=== PATIENT | female | born 1975 | race Asian ===

== ENCOUNTER 2016-08-25 20:07 | Emergency (ER) | payer OTHER ==
[~2016-08-25] VITALS: Ht 165.1 cm; Wt 127.0 kg
[~2016-08-25 20:07] MED LIST: CELEBREX200 MG PO; CLONIDINE0.1 MG PO; COZAAR100 MG PO; CYCL10TA35 PO; DOXYCYCL HYC100 M4 PO; FAMO20TA4 OR; FLUTMIS6 INH; FURO20TA67 PO; HYDR-2748 PO; HYDR25TA60 PO; LEVO0.0218 PO; MEDROL DOSEPAK4 MG PO; NEXIUM40 M1 PO; PRED20TA27 PO; SUCR1TAB35 PO; Z-PAK PO
[2016-08-25 21:40] LABS: POTASSIUM 4.5 mmol/L (3.6-5.2)
[2016-08-25 22:01] LABS: PLATELET COUNT 216 K/uL (152-353)
[2016-08-26 01:15] VITALS: BP 160/107; TEMP 98.2
== END 2016-08-26 01:17 | disposition home or self-care (01) ==
LOC: ED 20:07
DX: K80.20 Calculus of gallbladder without cholecystitis without obstruction (principal); K76.89 Other specified diseases of liver; R11.2 Nausea with vomiting, unspecified
CPT/HCPCS: 80053; 81000; 82150; 83690; 85027; 86318; 96361; 96374; 96375; 99284; J2175; J2550; Q9963

== ENCOUNTER 2016-09-23 15:39 | Outpatient (CLI) | payer OTHER ==
[2016-09-23 16:57] LABS: PLATELET COUNT 185 K/uL (152-353)
[2016-09-23 17:09] LABS: POTASSIUM 4.4 mmol/L (3.6-5.2); SODIUM 136 mmol/L (136-145)
== END 2016-09-23 19:21 | disposition home or self-care (01) ==
LOC: LABW 15:39
PROVIDERS: Internal Medicine Cardiovascular Disease
DX: I10 Essential (primary) hypertension (principal); E78.4 Other hyperlipidemia; R06.02 Shortness of breath; Z79.899 Other long term (current) drug therapy; Z51.81 Encounter for therapeutic drug level monitoring
CPT/HCPCS: 36415; 80048; 80061; 80076; 83880; 85027

== ENCOUNTER 2016-10-23 08:29 | Emergency (ER) | payer OTHER ==
[~2016-10-23] VITALS: Ht 165.1 cm; Wt 122.5 kg
[2016-10-23 09:07] LABS: PLATELET COUNT 232 K/uL (152-353)
[2016-10-23 09:15] LABS: POTASSIUM 3.3 mmol/L (3.6-5.2)
[2016-10-23 10:50] VITALS: BP 96/52; TEMP 98.1
== END 2016-10-23 10:50 | disposition home or self-care (01) ==
LOC: ED 08:29
DX: N39.0 Urinary tract infection, site not specified (principal); R42 Dizziness and giddiness; Z79.899 Other long term (current) drug therapy; Z86.711 Personal history of pulmonary embolism; D86.89 Sarcoidosis of other sites
CPT/HCPCS: 36415; 80053; 81000; 85027; 85610; 85730; 87086; 87088; 93005; 96360; 96361; 99284

== ENCOUNTER 2017-01-14 10:34 | Outpatient (CLI) | payer OTHER | END 2017-01-14 19:16 | disposition home or self-care (01) | LOC: RESP 10:34 | DX: I27.2 Other secondary pulmonary hypertension (principal) ==

== ENCOUNTER 2017-01-30 20:52 | Emergency (ER) | payer OTHER ==
[~2017-01-30] VITALS: Ht 165.1 cm; Wt 127.0 kg
[2017-01-30 21:55] LABS: PLATELET COUNT 270 K/uL (152-353)
[2017-01-31 00:46] VITALS: BP 118/64; TEMP 98.4
[2017-02-02] MEDS ORDERED: ELIQUIS5 MG OR (06:58)
[2017-02-02] MEDS ORDERED: DULO30CA OR (07:03)
[2017-02-02] MEDS ORDERED: FURO40TA93 PO (07:03)
[2017-02-02] MEDS ORDERED: POT CHLORIDE20 ME2 OR (07:04)
[2017-02-02] MEDS ORDERED: HYDR25TA60 PO (07:08)
[2017-02-02] MEDS ORDERED: PROTONIX20 MG PO (07:09)
[2017-02-02] MEDS ORDERED: BYSTOLIC10 MG PO (07:10)
[2017-02-02] MEDS ORDERED: ADEMPAS2 MG PO (07:10)
[2017-02-02] MEDS ORDERED: CYCL10TA35 PO (07:11)
[2017-02-02] MEDS ORDERED: ACET-689 PO (07:12)
== END 2017-01-31 00:30 | disposition home or self-care (01) ==
LOC: ED 20:52
DX: K52.89 Other specified noninfective gastroenteritis and colitis (principal); R10.84 Generalized abdominal pain
CPT/HCPCS: 80053; 85027; 96374; 99284; J1885

== ENCOUNTER 2017-02-10 18:48 | Outpatient (CLI) | payer OTHER ==
[~2017-02-10 18:48] MED LIST changes: +ACET-689 PO; +ADEMPAS2 MG PO; +BYSTOLIC10 MG PO; +DULO30CA OR; +ELIQUIS5 MG OR; +FURO40TA93 PO; +POT CHLORIDE20 ME2 OR; +PROTONIX20 MG PO; +SYMBICORT1 AE1 IN
[2017-02-10 20:23] LABS: POTASSIUM 4.2 mmol/L (3.6-5.2)
[2017-02-10 20:26] LABS: PLATELET COUNT 281 K/uL (152-353)
== END 2017-02-10 19:59 | disposition home or self-care (01) ==
LOC: LAB 18:48
PROVIDERS: Family Medicine
DX: R74.8 Abnormal levels of other serum enzymes (principal); D64.89 Other specified anemias; R10.84 Generalized abdominal pain
CPT/HCPCS: 80053; 81000; 85027

== ENCOUNTER 2018-01-05 12:32 | Outpatient (CLI) | payer OTHER | END 2018-01-05 23:30 | disposition home or self-care (01) | LOC: RESP 12:32 | DX: I27.24 Chronic thromboembolic pulmonary hypertension (principal) ==

== ENCOUNTER → 2018-03-10 12:21 | Outpatient (CLI) | payer OTHER | END | disposition short-term general hospital (02) | LOC: AMB 12:21 | DX: J44.1 Chronic obstructive pulmonary disease with (acute) exacerbation (principal) | CPT/HCPCS: A0425; A0427 ==

== ENCOUNTER 2018-03-10 12:23 | Emergency (ER) | payer OTHER ==
[~2018-03-10] VITALS: Ht 165.1 cm; Wt 129.3 kg
[2018-03-10 13:44] LABS: PARTIAL THROMBOPLASTIN TIME 27.2 SECONDS (24.5-33.6)
[2018-03-10 14:16] LABS: POTASSIUM 3.5 mmol/L (3.6-5.2); SODIUM 136 mmol/L (136-145)
[2018-03-10 14:34] LABS: PLATELET COUNT 266 K/uL (152-353)
[2018-03-10 16:30] VITALS: BP 92/63
== END 2018-03-10 16:30 | disposition home or self-care (01) ==
LOC: ED 12:23
DX: R53.1 Weakness (principal); G47.39 Other sleep apnea; I27.20 Pulmonary hypertension, unspecified
CPT/HCPCS: 80053; 81000; 82550; 82553; 83880; 84484; 85027; 85610; 85730; 93005; 99283

== ENCOUNTER 2018-11-30 07:42 | Outpatient (CLI) | payer OTHER ==
[2018-11-30 08:05] LABS: PLATELET COUNT 216 K/uL (152-353)
[2018-11-30 08:46] LABS: POTASSIUM 4.5 mmol/L (3.6-5.2)
== END 2018-11-30 23:26 | disposition home or self-care (01) ==
LOC: LABW 07:42
PROVIDERS: Family Medicine
DX: I10 Essential (primary) hypertension (principal); K21.9 Gastro-esophageal reflux disease without esophagitis; F41.8 Other specified anxiety disorders; E55.9 Vitamin D deficiency, unspecified; J44.9 Chronic obstructive pulmonary disease, unspecified
CPT/HCPCS: 36415; 80053; 80061; 81000; 82306; 83735; 84439; 84443; 85027

== ENCOUNTER 2018-12-20 15:29 | Outpatient (CLI) | payer OTHER | END 2018-12-20 19:49 | disposition home or self-care (01) | LOC: RAD 15:29 | DX: D86.0 Sarcoidosis of lung (principal) ==

== ENCOUNTER 2019-02-13 14:33 | Inpatient (IN) | payer OTHER ==
[2019-02-13] VITALS (9 sets, daily range): BP systolic 116–154; BP diastolic 68–97; TEMP 98.2–98.6; Ht 165.1 cm; Wt 132.5 kg
[~2019-02-13] VITALS: Ht 165.1 cm; Wt 132.5 kg
[2019-02-13 15:41] LABS: PLATELET COUNT 217 K/uL (152-353)
[2019-02-13 15:49] LABS: POTASSIUM 4.7 mmol/L (3.6-5.2); SODIUM 138 mmol/L (136-145)
[2019-02-13 16:00] LABS: PARTIAL THROMBOPLASTIN TIME 25.7 SECONDS (24.5-33.6)
[2019-02-14 04:00] VITALS: BP 138/92; TEMP 98.8
[2019-02-14 08:00] VITALS: BP 134/87; TEMP 98.1
[2019-02-14 10:49] LABS: PLATELET COUNT 216 K/uL (152-353)
[2019-02-14 11:05] LABS: POTASSIUM 4.9 mmol/L (3.6-5.2); SODIUM 137 mmol/L (136-145)
[2019-02-14 11:50] VITALS: BP 115/81; TEMP 98
[2019-02-14 12:00] VITALS: BP 127/91; TEMP 98
[2019-02-14 12:33] LABS: PARTIAL THROMBOPLASTIN TIME 25.4 SECONDS (24.5-33.6)
[2019-02-14 14:00] VITALS: BP 118/77
[2019-02-14 15:00] VITALS: BP 123/80
== END 2019-02-14 16:45 | disposition short-term general hospital (02) | DRG 204 ==
LOC: ED 14:33 → MED/SURG 16:53 → ICU 02-14 12:26
PROVIDERS: Family Medicine; ADMIT Student in an Organized Health Care Education/Training Program
DX: R06.03 Acute respiratory distress (principal); R09.02 Hypoxemia; G47.33 Obstructive sleep apnea (adult) (pediatric); D86.89 Sarcoidosis of other sites; I27.20 Pulmonary hypertension, unspecified; E66.8 Other obesity; Z91.19 Patient's noncompliance with other medical treatment and regimen
CPT/HCPCS: 36415; 36600; 80048; 80053; 82550; 82805; 83735; 83880; 84100; 84484; 85027; 85379; 85610; 85730; 93005; 94660; 96374; 99284; J1644; J2930; Q9963

== ENCOUNTER 2019-02-14 16:55 | Outpatient (CLI) | payer OTHER | END 2019-02-14 18:09 | disposition short-term general hospital (02) | LOC: AMB 16:55 | DX: R06.03 Acute respiratory distress (principal); Z99.89 Dependence on other enabling machines and devices | CPT/HCPCS: A0425; A0427 ==

== ENCOUNTER 2019-04-14 15:25 | Inpatient (IN) | payer OTHER ==
[~2019-04-14] VITALS: Ht 162.6 cm; Wt 123.4 kg
[2019-04-14] VITALS (12 sets, daily range): BP systolic 129–183; BP diastolic 88–110; TEMP 97.9; Ht 162.6 cm; Wt 123.4 kg
[2019-04-14 16:35] LABS: PLATELET COUNT 193 K/uL (152-353)
[2019-04-14 16:36] LABS: POTASSIUM 5.1 mmol/L (3.6-5.2); SODIUM 141 mmol/L (136-145)
[2019-04-15] VITALS (25 sets, daily range): BP systolic 93–1231; BP diastolic 46–98; TEMP 97.9–99.4
[2019-04-15 01:18] LABS: PLATELET COUNT 193 K/uL (152-353)
[2019-04-15 01:23] LABS: POTASSIUM 4.6 mmol/L (3.6-5.2)
[2019-04-15] MEDS ORDERED: ADEMPAS2.5 MG PO (10:37)
[2019-04-15] MEDS ORDERED: FURO40TA93 PO (11:45)
[2019-04-15] MEDS ORDERED: D31000 UNIT PO (11:49)
[2019-04-15] MEDS ORDERED: TURMERIC CURCUM1 CAP PO (11:51)
[2019-04-16] VITALS (13 sets, daily range): BP systolic 90–122; BP diastolic 50–77; TEMP 97.9–99.3
[2019-04-16 06:08] LABS: PLATELET COUNT 185 K/uL (152-353); POTASSIUM 4.4 mmol/L (3.6-5.2)
[2019-04-17] VITALS (10 sets, daily range): BP systolic 93–115; BP diastolic 45–74; TEMP 98.2–99.1
[2019-04-17 05:38] LABS: POTASSIUM 4.3 mmol/L (3.6-5.2)
[2019-04-17] MEDS ORDERED: ALBU0.0813 INH (14:21)
[2019-04-17] MEDS ORDERED: GUAI600T70 PO (14:22)
[2019-04-17] MEDS ORDERED: LEVAQUIN 500MG TAB PO (14:23)
[2019-04-17] MEDS ORDERED: IPRASOL5 INH (14:23)
[2019-04-17] MEDS ORDERED: PRED10TA27 PO (14:24)
== END 2019-04-17 16:50 | disposition home or self-care (01) | DRG 189 ==
LOC: ED 15:25 → ICU 18:00
PROVIDERS: Family Medicine; ADMIT Internal Medicine
DX: J96.02 Acute respiratory failure with hypercapnia (principal); J18.8 Other pneumonia, unspecified organism; E87.2 Acidosis; D86.9 Sarcoidosis, unspecified; I27.20 Pulmonary hypertension, unspecified; K21.9 Gastro-esophageal reflux disease without esophagitis; Z86.711 Personal history of pulmonary embolism
CPT/HCPCS: 36415; 36600; 80048; 80053; 82805; 84443; 84484; 85027; 85379; 87502; 87651; 93005; 94640; 94660; 94664; 94668; 94760; 96374; 96375; 99285; J0132; J0360; J1885; J1940; J1956; J2270; J2543; J2930

== ENCOUNTER 2019-05-10 20:00 | Emergency (ER) | payer OTHER ==
[~2019-05-10] VITALS: Ht 162.6 cm; Wt 123.4 kg
[~2019-05-10 20:00] MED LIST changes: +ADEMPAS2.5 MG PO; +ALBU0.0813 INH; +D31000 UNIT PO; +GUAI600T70 PO; +IPRASOL5 INH; +LEVAQUIN 500MG TAB PO; +PRED10TA27 PO; +TURMERIC CURCUM1 CAP PO
[2019-05-10 21:21] LABS: PLATELET COUNT 236 K/uL (152-353)
[2019-05-10 21:33] LABS: POTASSIUM 5.1 mmol/L (3.6-5.2)
[2019-05-10 22:37] LABS: PARTIAL THROMBOPLASTIN TIME 30.5 SECONDS (24.5-33.6)
[2019-05-11 01:09] VITALS: BP 151/98; TEMP 98.1
== END 2019-05-11 01:10 | disposition short-term general hospital (02) ==
LOC: ED 20:00
PROVIDERS: Emergency Medicine
DX: R06.03 Acute respiratory distress (principal)
CPT/HCPCS: 36415; 36600; 80053; 82550; 82553; 82805; 83605; 83735; 83880; 84484; 85027; 85379; 85610; 85730; 93005; 94664; 99285

== ENCOUNTER 2019-05-11 01:13 | Outpatient (CLI) | payer OTHER | END 2019-05-11 02:34 | disposition short-term general hospital (02) | LOC: AMB 01:13 | DX: R06.02 Shortness of breath (principal); R06.03 Acute respiratory distress | CPT/HCPCS: A0425; A0427 ==

== ENCOUNTER 2020-06-10 09:21 | Outpatient (CLI) | payer OTHER ==
[2020-06-10 10:17] LABS: POTASSIUM 4.9 mmol/L (3.6-5.2)
== END 2020-06-10 21:25 | disposition home or self-care (01) ==
LOC: RESP 09:21
PROVIDERS: ATTEND Internal Medicine Sleep Medicine
DX: I27.24 Chronic thromboembolic pulmonary hypertension (principal)
CPT/HCPCS: 36415; 80048; 83880

== ENCOUNTER 2020-10-02 11:12 | Outpatient (CLI) | payer OTHER | END 2020-10-02 20:13 | disposition home or self-care (01) | LOC: INF 11:12 | PROVIDERS: ATTEND Internal Medicine | DX: Z23 Encounter for immunization (principal) | CPT/HCPCS: 96372 ==

== ENCOUNTER 2020-10-24 10:45 | Outpatient (CLI) | payer OTHER | END 2020-10-24 19:26 | disposition home or self-care (01) | LOC: INF 10:45 | PROVIDERS: ATTEND Internal Medicine | DX: Z23 Encounter for immunization (principal) | CPT/HCPCS: 96372 ==

== ENCOUNTER 2021-01-10 11:55 | Emergency (ER) | payer OTHER ==
[~2021-01-10] VITALS: Ht 162.6 cm; Wt 147.0 kg
[2021-01-10 12:00] VITALS: TEMP 98.1
[2021-01-10 13:07] LABS: POTASSIUM 4.1 mmol/L (3.6-5.2); SODIUM 143 mmol/L (136-145)
[2021-01-10 13:10] LABS: PLATELET COUNT 214 K/uL (152-353)
[2021-01-10 17:01] VITALS: BP 152/76
== END 2021-01-10 17:01 | disposition home or self-care (01) ==
LOC: ED 11:55
PROVIDERS: Family Medicine
DX: R06.89 Other abnormalities of breathing (principal); D86.89 Sarcoidosis of other sites; Z20.822 Contact with and (suspected) exposure to COVID-19
CPT/HCPCS: 36600; 80053; 81000; 82805; 84484; 85027; 85379; 87635; 93005; 99283; U0003

== ENCOUNTER 2021-01-16 13:36 | Emergency (ER) | payer OTHER ==
[~2021-01-16] VITALS: Ht 165.1 cm; Wt 147.0 kg
[2021-01-16] MEDS ORDERED: METHYLCOBALAMIN XX (13:57)
[2021-01-16 14:09] LABS: PLATELET COUNT 220 K/uL (152-353)
[2021-01-16 14:14] LABS: POTASSIUM 4.2 mmol/L (3.6-5.2); SODIUM 140 mmol/L (136-145)
[2021-01-16 14:19] LABS: PARTIAL THROMBOPLASTIN TIME 28.7 SECONDS (24.5-33.6)
[2021-01-17 06:57] VITALS: TEMP 98.9
[2021-01-17 14:02] VITALS: BP 138/80
== END 2021-01-17 14:21 | disposition short-term general hospital (02) ==
LOC: ED 13:36
PROVIDERS: Hospitalist
DX: I27.20 Pulmonary hypertension, unspecified (principal); J44.9 Chronic obstructive pulmonary disease, unspecified; I50.9 Heart failure, unspecified; R41.82 Altered mental status, unspecified; D86.89 Sarcoidosis of other sites; Z11.52 Encounter for screening for COVID-19
CPT/HCPCS: 36415; 80053; 82550; 82947; 83880; 84484; 85027; 85379; 85610; 85730; 87635; 93005; 96374; 96375; 99284; J1940; J2270; J2405; Q9963; U0003

== ENCOUNTER 2021-02-03 09:14 | Emergency (ER) | payer OTHER ==
[~2021-02-03] VITALS: Ht 165.1 cm; Wt 147.0 kg
[~2021-02-03 09:14] MED LIST changes: +METHYLCOBALAMIN XX
[2021-02-03 09:55] LABS: PLATELET COUNT 315 K/uL (152-353)
[2021-02-03 09:57] LABS: POTASSIUM 4.4 mmol/L (3.6-5.2); SODIUM 143 mmol/L (136-145)
[2021-02-03 10:14] LABS: PARTIAL THROMBOPLASTIN TIME 21.7 SECONDS (24.5-33.6)
[2021-02-03 11:20] VITALS: BP 144/70; TEMP 98.7
== END 2021-02-03 11:40 | disposition home or self-care (01) ==
LOC: ED 09:14
PROVIDERS: Emergency Medicine
DX: R41.0 Disorientation, unspecified (principal); G47.33 Obstructive sleep apnea (adult) (pediatric); D86.9 Sarcoidosis, unspecified; Z99.81 Dependence on supplemental oxygen; R06.02 Shortness of breath
CPT/HCPCS: 80053; 82805; 83880; 84484; 85027; 85379; 85610; 85730; 93005; 99283

== ENCOUNTER 2021-10-14 10:08 | Outpatient (CLI) | payer OTHER ==
[2021-10-14 11:17] LABS: POTASSIUM 4.9 mmol/L (3.6-5.2)
[2021-10-14 13:07] LABS: PLATELET COUNT 169 K/uL (152-353)
== END 2021-10-14 18:53 | disposition home or self-care (01) ==
LOC: LABW 10:08
PROVIDERS: ATTEND Internal Medicine
DX: D86.89 Sarcoidosis of other sites (principal); E03.8 Other specified hypothyroidism; K29.70 Gastritis, unspecified, without bleeding; Z86.711 Personal history of pulmonary embolism; Z09 Encounter for follow-up examination after completed treatment for conditions other than malignant neoplasm
CPT/HCPCS: 36415; 80053; 80061; 81000; 82164; 83540; 83880; 84439; 84443; 85027; 85379

== ENCOUNTER 2022-03-08 20:34 | Emergency (ER) | payer OTHER ==
[~2022-03-08] VITALS: Ht 165.1 cm; Wt 147.0 kg
[2022-03-08 22:37] LABS: POTASSIUM 4.8 mmol/L (3.6-5.2)
[2022-03-08 22:52] LABS: PLATELET COUNT 165 K/uL (152-353)
[2022-03-08 23:55] VITALS: BP 104/646; TEMP 98.4
== END 2022-03-08 23:55 | disposition short-term general hospital (02) ==
LOC: ED 20:34
PROVIDERS: Family Medicine
DX: J96.90 Respiratory failure, unspecified, unspecified whether with hypoxia or hypercapnia (principal); J18.9 Pneumonia, unspecified organism; D86.89 Sarcoidosis of other sites; Z11.52 Encounter for screening for COVID-19
CPT/HCPCS: 36600; 80053; 82150; 82805; 83880; 85027; 86140; 87040; 87077; 87185; 87205; 87635; 94660; 94664; 96365; 96366; 96375; 99284; J0456; J0696; J2930; U0003

== ENCOUNTER 2022-05-30 02:15 | Emergency (ER) | payer OTHER ==
[~2022-05-30] VITALS: Ht 165.1 cm; Wt 147.0 kg
[2022-05-30 03:26] LABS: POTASSIUM 4.5 mmol/L (3.6-5.2)
[2022-05-30 03:28] LABS: PLATELET COUNT 148 K/uL (152-353)
[2022-05-30 03:42] LABS: PARTIAL THROMBOPLASTIN TIME 29.2 SECONDS (24.5-33.6)
[2022-05-30 06:00] VITALS: BP 131/76
== END 2022-05-30 06:00 | disposition short-term general hospital (02) ==
LOC: ED 02:15
PROVIDERS: Family Medicine
DX: J96.91 Respiratory failure, unspecified with hypoxia (principal); J44.1 Chronic obstructive pulmonary disease with (acute) exacerbation
CPT/HCPCS: 36415; 36600; 80053; 82550; 82805; 83880; 84484; 85027; 85610; 85730; 87040; 87205; 93005; 94664; 96365; 96366; 96375; 99285; J0456; J0696; J2930

== ENCOUNTER 2022-08-01 10:57 | Emergency (ER) | payer OTHER ==
[~2022-08-01] VITALS: Ht 165.1 cm; Wt 147.0 kg
[2022-08-01 10:57] VITALS: TEMP 97.3
[2022-08-01 11:32] LABS: PLATELET COUNT 184 K/uL (152-353)
[2022-08-01 12:41] LABS: PARTIAL THROMBOPLASTIN TIME 24.5 SECONDS (24.5-33.6)
[2022-08-01 12:47] LABS: POTASSIUM 4.4 mmol/L (3.6-5.2)
[2022-08-01 15:32] VITALS: BP 103/71
== END 2022-08-01 15:38 | disposition short-term general hospital (02) ==
LOC: ED 10:57
PROVIDERS: Family Medicine
DX: R06.89 Other abnormalities of breathing (principal); J44.1 Chronic obstructive pulmonary disease with (acute) exacerbation; D64.89 Other specified anemias; Z11.52 Encounter for screening for COVID-19
CPT/HCPCS: 36600; 80053; 81002; 82550; 82805; 83880; 84484; 85027; 85610; 85730; 87635; 93005; 94660; 94664; 96365; 96375; 99285; J0696; J1940; J2930; U0003

== ENCOUNTER 2022-08-27 12:22 | Outpatient (CLI) | payer OTHER ==
[2022-08-27 12:43] LABS: PLATELET COUNT 201 K/uL (152-353)
== END 2022-08-27 19:20 | disposition home or self-care (01) ==
LOC: LAB 12:22
PROVIDERS: ATTEND Internal Medicine
DX: J96.11 Chronic respiratory failure with hypoxia (principal); D86.0 Sarcoidosis of lung; I10 Essential (primary) hypertension
CPT/HCPCS: 80053; 80061; 84439; 84443; 85027

== ENCOUNTER 2022-11-05 09:27 | Outpatient (CLI) | payer OTHER ==
[2022-11-05 09:54] LABS: PLATELET COUNT 144 K/uL (152-353)
[2022-11-05 09:57] LABS: POTASSIUM 4.6 mmol/L (3.6-5.2)
== END 2022-11-05 17:00 | disposition home or self-care (01) ==
LOC: LABW 09:27
PROVIDERS: ATTEND Internal Medicine
DX: J96.11 Chronic respiratory failure with hypoxia (principal); R79.89 Other specified abnormal findings of blood chemistry; Z79.899 Other long term (current) drug therapy
CPT/HCPCS: 36415; 80053; 81002; 83540; 84439; 84443; 85027

== ENCOUNTER 2022-12-31 20:34 | Emergency (ER) | payer OTHER ==
[~2022-12-31] VITALS: Ht 165.1 cm; Wt 145.2 kg
[2022-12-31 20:34] VITALS: TEMP 98.1
[2022-12-31 22:03] LABS: PLATELET COUNT 130 K/uL (152-353)
[2022-12-31 22:06] LABS: POTASSIUM 4.3 mmol/L (3.6-5.2)
[2022-12-31 23:30] VITALS: BP 137/76
== END 2022-12-31 23:30 | disposition short-term general hospital (02) ==
LOC: ED 20:34
PROVIDERS: Family Medicine
DX: J96.00 Acute respiratory failure, unspecified whether with hypoxia or hypercapnia (principal); R41.82 Altered mental status, unspecified; E88.81 Metabolic syndrome and other insulin resistance; E87.29 Other acidosis
CPT/HCPCS: 36600; 80053; 82805; 83605; 84484; 85027; 87040; 93005; 94664; 99284